=== PATIENT | male | born 1990 | race Caucasian/White ===

== ENCOUNTER 2018-03-11 21:03 | Emergency (ER) | payer BC ==
[2018-03-11 21:17] VITALS: BP 135/93; PULSE 102; TEMP 97.9; BMI 59.1
--- NOTE | 2018-03-11 21:26 | PDOC ---
History of Present Illness - General History Source: Patient Exam Limitations: No Limitations - History of Present Illness Initial Comments: 03/11/18 21:30 The patient is a 28 year old male with no significant past medical history who presents to the emergency department for evaluation of right ear. The patient reports a dull pain in the right ear which started today. The patient reports attempting to take Sudafed last night for his allergies, dropped the pill near his ear, and believes the pill may have went inside of his ear. The patient denies fever, nausea, vomiting, headache, or dizziness. Allergies: NKDA Past surgical history: Lap Band (2004), Cholecystectomy (2008) Social history: No reported cigarette, alcohol, or drug use. PCP: Dr. Dominguez ([phone]) <Mame Almanza - Last Filed: 03/11/18 21:29> <Eliot Russell - Last Filed: 03/12/18 05:30> - General Chief Complaint: Foreign Body (FB) Stated Complaint: POSSIBLE PILL IN RIGHT EAR Past History <Mame Almanza - Last Filed: 03/11/18 21:29> - Past Medical History COPD: No Psychiatric Problems: Yes - Surgical History Cholecystectomy: Yes (2008) Gastric Stapling: Yes (LAP BAND 2004) - Suicide/Smoking/Psychosocial Hx Smoking History: Never smoked Hx Alcohol Use: No Drug/Substance Use Hx: No Substance Use Type: None <Eliot Russell - Last Filed: 03/12/18 05:30> - Past Medical History Allergies/Adverse Reactions: Allergies Allergy/AdvReac Type Severity Reaction Status Date / Time No Known Allergies Allergy Verified 03/11/18 21:08 Home Medications: Ambulatory Orders Bupropion HCl [Wellbutrin Xl -] 450 mg PO DAILY 03/11/18 Clonazepam [Klonopin] 1 mg PO HS 03/11/18 Levocetirizine Dihydrochloride [Xyzal] 5 mg PO DAILY PRN 03/11/18 Zolpidem Tartrate [Ambien Cr] 12.5 mg PO HS 03/11/18 Review of Systems - Review of Systems Able to Perform ROS?: Yes Comments:: GENERAL/CONSTITUTIONAL: No fever or chills. No weakness. HEAD, EYES, EARS, NOSE AND THROAT: (+)Dull right ear pain. No change in vision. No sore throat. CARDIOVASCULAR: No chest pain or shortness of breath. RESPIRATORY: No cough, wheezing, or hemoptysis. GASTROINTESTINAL: No nausea, vomiting, diarrhea or constipation. GENITOURINARY: No dysuria, frequency, or change in urination. MUSCULOSKELETAL: No joint or muscle swelling or pain. No neck or back pain. SKIN: No rash NEUROLOGIC: No headache, vertigo, loss of consciousness, or change in strength/ sensation. ENDOCRINE: No increased thirst. No abnormal weight change. HEMATOLOGIC/LYMPHATIC: No anemia, easy bleeding, or history of blood clots. ALLERGIC/IMMUNOLOGIC: No hives or skin allergy. <Mame Almanza - Last Filed: 03/11/18 21:29> *Physical Exam - Vital Signs Last Vital Signs Temp Pulse Resp BP Pulse Ox 97.9 F 102 H 16 135/93 100 03/11/18 21:08 03/11/18 21:08 03/11/18 21:08 03/11/18 21:08 03/11/18 21:08 - Physical Exam Comments: GENERAL: Awake, alert, and fully oriented, in no acute distress HEAD: No signs of trauma EYES: PERRLA, EOMI, sclera anicteric, conjunctiva clear ENT:(+)Fluid behind right tympanic membrane, no erythema, no pus, left ear normal, hearing grossly normal, nares patent. NECK: Normal ROM, supple. LUNGS: Breath sounds equal, clear to auscultation bilaterally. No wheezes, and no crackles HEART: Regular rate and rhythm, normal S1 and S2, no murmurs, rubs or gallops ABDOMEN: Soft, nontender, normoactive bowel sounds. No guarding, no rebound. No masses EXTREMITIES: Normal range of motion, no edema. No clubbing or cyanosis. No cords, erythema, or tenderness NEUROLOGICAL: AOX3. Normal speech. SKIN: Warm, Dry, normal turgor, no rashes or lesions noted. <Mame Almanza - Last Filed: 03/11/18 21:29> - Vital Signs Last Vital Signs Temp Pulse Resp BP Pulse Ox 97.9 F 102 H 16 135/93 100 03/11/18 21:08 03/11/18 21:08 03/11/18 21:08 03/11/18 21:08 03/11/18 21:08 <Eliot Russell - Last Filed: 03/12/18 05:30> Medical Decision Making - Medical Decision Making 03/12/18 05:29 no pill identified tm bulgin in affected ear ? viral OM versus allergic symptoms <Eliot Russell - Last Filed: 03/12/18 05:30> *DC/Admit/Observation/Transfer - Attestations Scribe Attestion: Documentation prepared by Mame Almanza, acting as medical doctor nuclear medicine for Eliot Russell MD. <Mame Almanza - Last Filed: 03/11/18 21:29> <Eliot Russell - Last Filed: 03/12/18 05:30> Diagnosis at time of Disposition: Ear infection - Discharge Dispostion Disposition: HOME Condition at time of disposition: Good - Referrals Referrals: Callum Dominguez [Primary Care Provider] - - Patient Instructions Additional Instructions: Motrin and sudafed for fluid behind your ear drum--this may be a viral infection or allergies - Post Discharge Activity
== END 2018-03-11 21:25 | disposition home or self-care (01) ==
LOC: FER 21:03
DX: H66.91 Otitis media, unspecified, right ear (principal); F99 Mental disorder, not otherwise specified
CPT/HCPCS: 99281-25

== ENCOUNTER 2022-01-16 18:50 | Emergency (ER) | payer BC ==
[2022-01-16 19:07] VITALS: BP 156/102; PULSE 102; TEMP 98.9; BMI 43.0
== END 2022-01-16 20:42 | disposition home or self-care (01) ==
LOC: FER 18:50
DX: S63.502A Unspecified sprain of left wrist, initial encounter (principal); Y99.9 Unspecified external cause status
CPT/HCPCS: 99282-25